=== PATIENT | female | born 1985 | race Caucasian/White ===

== ENCOUNTER 2018-07-22 12:42 | Emergency (ER) | payer MEDICARE, MEDICAID ==
[~2018-07-22] VITALS: Ht 121.9 cm; Wt 25.0 kg
[~2018-07-22 12:42] MED LIST: B-12 DOTS500 MCG SL; BACLOFEN10 MG PO; BACLOFEN20 MG OR; DIAZEPAM2 MG OR; DULCOLAX5 MG PO; HYDROCO/APAP1 TA9 OR; OMEPRAZOLE20 MG OR; PEPCID20 MG PO; PHENOBARB30 MG OR; TAM75CAP PO; TRAMADOL HCL50 MG PO; TRANSDERM-SC1.5 MG TD; TRAZODONE50 MG PO; VITAMIN D31000 UNI1 PO; [UNRECOGNIZED DRUG - OTHER] OR
[2018-07-22 13:51] LABS: INFLUENZA A NONE DETECTED (NONE DETECT); INFLUENZA B NONE DETECTED (NONE DETECT)
[2018-07-22 14:36] LABS: ALBUMIN 3.4 g/dL (3.2-5.0); ALKALINE PHOSPHATASE 112 u/l (38-126); ANION GAP 11 (6-22 (CALC)); BILIRUBIN, TOTAL 0.2 mg/dL (0.0-1.4); BUN 13 mg/dL (7-17); BUN/CREATININE RATIO 34 (12-20 (CALC)); CARBON DIOXIDE 30 mmol/l (22-30); CHLORIDE 105 mmol/l (95-108); CREATININE 0.4 mg/dL (0.5-1.0); GFR > 60 ML/MIN (>=60 (CALC)); GFR FOR AFR.AMER. > 60 ML/MIN (>=60 (CALC)); LIPASE 74 u/l (23-300); SGOT/AST 15 u/l (14-36); SGPT/ALT 28 u/l (9-52); SODIUM 143 mmol/l (137-146); TOTAL PROTEIN 6.4 g/dL (6.3-8.2)
[2018-07-22 14:37] LABS: POTASSIUM 3.2 mmol/l (3.5-5.1)
[2018-07-22 14:45] LABS: HEMATOCRIT 35.4 % (37.0-47.0); HEMOGLOBIN 10.9 g/dl (12.0-16.0); IMMATURE GRANULOCYTES 0.4 % (0.0-5.0); MEAN CORPUSCULAR HGB 25.8 pG CALC (26.0-32.0); MEAN CORPUSCULAR HGB CONC 30.8 g/L CALC (32.0-36.0); NEUT# 4.15 thou/uL (2.00-7.15); RED BLOOD COUNT 4.22 mill/uL (4.20-5.60); RED CELL DISTRI WIDTH 19.4 % (11.5-15.5)
[2018-07-22 14:46] LABS: MEAN CELL VOLUME 83.9 fL CALC (80.0-100.0)
[2018-07-22] MEDS ORDERED: OMEPRAZOLE10 MG PO (15:56)
[2018-07-22] MEDS ORDERED: TRAZODONE50 MG PO (16:02)
[2018-07-22] MEDS ORDERED: MIRALAX3350 NF PO (16:04)
[2018-07-22] MEDS ORDERED: DIAZEPAM2 MG PO (16:07)
[2018-07-22] MEDS ORDERED: DESOWEN EX (16:08)
[2018-07-22 16:41] LABS: URINE BILIRUBIN - DIPSTICK NEGATIVE (NEGATIVE); URINE BLOOD DIPSTICK NEGATIVE (NEGATIVE); URINE COLOR YELLOW; URINE GLUCOSE - DIPSTICK NEGATIVE (NEGATIVE); URINE KETONE NEGATIVE (NEGATIVE); URINE LEUK ESTERASE NEGATIVE (NEGATIVE); URINE NITRITE - DIPSTICK NEGATIVE (Negative); URINE PH 7.5 (4.5-8.0); URINE PROTEIN - DIPSTICK TRACE mg/dL (NEG-TRACE); URINE UROBILINOGEN - DIPSTICK 0.2 E.U./dL (0.2)
[2018-07-22 16:44] LABS: URINE CLARITY CLEAR
[2018-07-22] MEDS ORDERED: ZPAK PO (16:58)
[2018-07-22] MEDS ORDERED: K-TAB20 MEQ PO (16:58)
[2018-07-22 17:30] VITALS: BP 97/78
== END 2018-07-22 17:30 | disposition home or self-care (01) ==
LOC: ED 12:42
PROVIDERS: Family Medicine
DX: R53.1 Weakness (principal); R05 Cough; E87.6 Hypokalemia; G80.9 Cerebral palsy, unspecified; H54.7 Unspecified visual loss

== ENCOUNTER 2018-09-26 10:00 | Emergency (ER) | payer MEDICARE, MEDICAID ==
[~2018-09-26] VITALS: Ht 121.9 cm; Wt 25.0 kg
[~2018-09-26 10:00] MED LIST changes: +DESOWEN EX; +DIAZEPAM2 MG PO; +K-TAB20 MEQ PO; +MIRALAX3350 NF PO; +OMEPRAZOLE10 MG PO; +ZPAK PO
[2018-09-26 11:17] LABS: INFLUENZA A NONE DETECTED (NONE DETECT); INFLUENZA B NONE DETECTED (NONE DETECT)
[2018-09-26] MEDS ORDERED: ZITHROMAX200 MG/5 M PO (11:24)
[2018-09-26] MEDS ORDERED: AMOX/K CLA400 MG/5 M PO (11:24)
[2018-09-26 11:27] VITALS: BP 108/77
== END 2018-09-26 11:45 | disposition home or self-care (01) ==
LOC: ED 10:00
PROVIDERS: Emergency Medicine
DX: J02.0 Streptococcal pharyngitis (principal); H54.7 Unspecified visual loss; G80.9 Cerebral palsy, unspecified; Z98.2 Presence of cerebrospinal fluid drainage device

== ENCOUNTER 2018-09-29 19:53 | Emergency (ER) | payer MEDICARE, MEDICAID ==
[~2018-09-29] VITALS: Ht 121.9 cm; Wt 34.0 kg
[~2018-09-29 19:53] MED LIST changes: +AMOX/K CLA400 MG/5 M PO; +ZITHROMAX200 MG/5 M PO
[2018-09-29 20:46] LABS: HEMATOCRIT 39.9 % (37.0-47.0); HEMOGLOBIN 12.1 g/dl (12.0-16.0); IMMATURE GRANULOCYTES 0.9 % (0.0-5.0); MEAN CELL VOLUME 87.9 fL CALC (80.0-100.0); MEAN CORPUSCULAR HGB 26.7 pG CALC (26.0-32.0); MEAN CORPUSCULAR HGB CONC 30.3 g/L CALC (32.0-36.0); NEUT# 2.31 thou/uL (2.00-7.15); RED BLOOD COUNT 4.54 mill/uL (4.20-5.60); RED CELL DISTRI WIDTH 20.5 % (11.5-15.5)
[2018-09-29 20:58] LABS: ALKALINE PHOSPHATASE 131 u/l (38-126); ANION GAP 13 (6-22 (CALC)); BILIRUBIN, TOTAL 0.4 mg/dL (0.0-1.4); BUN 12 mg/dL (7-17); BUN/CREATININE RATIO 38 (12-20 (CALC)); CARBON DIOXIDE 25 mmol/l (22-30); CHLORIDE 104 mmol/l (95-108); CREATININE 0.3 mg/dL (0.5-1.0); GFR > 60 ML/MIN (>=60 (CALC)); GFR FOR AFR.AMER. > 60 ML/MIN (>=60 (CALC)); SGOT/AST 65 u/l (14-36); SODIUM 137 mmol/l (137-146); TOTAL PROTEIN 6.2 g/dL (6.3-8.2)
--- NOTE | 2018-09-29 21:11 | NUR ---
BREATHING TREATMENT GIVEN BACK TO BACK USING MASK. BREATHING TECH. FOR GOOD DEPOSITION TO THE LUNGS.
[2018-09-29] MEDS ORDERED: DUONEB IN (21:53)
[2018-09-29] MEDS ORDERED: NEBULIZER KIT/TUBING IN (21:53)
== END 2018-09-29 22:15 | disposition home or self-care (01) ==
LOC: ED 19:53
PROVIDERS: Family Medicine
DX: J18.9 Pneumonia, unspecified organism (principal); G80.9 Cerebral palsy, unspecified; H54.7 Unspecified visual loss; Z98.2 Presence of cerebrospinal fluid drainage device

== ENCOUNTER 2018-10-11 10:30 | Emergency (ER) | payer MEDICARE, MEDICAID ==
[~2018-10-11] VITALS: Ht 121.9 cm; Wt 25.0 kg
[~2018-10-11 10:30] MED LIST changes: +DUONEB IN; +NEBULIZER KIT/TUBING IN
[2018-10-11 11:28] LABS: HEMATOCRIT 32.2 % (37.0-47.0); HEMOGLOBIN 9.8 g/dl (12.0-16.0); IMMATURE GRANULOCYTES 1.4 % (0.0-5.0); MEAN CELL VOLUME 87.3 fL CALC (80.0-100.0); MEAN CORPUSCULAR HGB 26.6 pG CALC (26.0-32.0); MEAN CORPUSCULAR HGB CONC 30.4 g/L CALC (32.0-36.0); NEUT# 4.73 thou/uL (2.00-7.15); RED BLOOD COUNT 3.69 mill/uL (4.20-5.60); RED CELL DISTRI WIDTH 21.4 % (11.5-15.5)
[2018-10-11 11:40] LABS: ANION GAP 10 (6-22 (CALC)); BUN 18 mg/dL (7-17); BUN/CREATININE RATIO 61 (12-20 (CALC)); CARBON DIOXIDE 26 mmol/l (22-30); CHLORIDE 105 mmol/l (95-108); CREATININE 0.3 mg/dL (0.5-1.0); GFR > 60 ML/MIN (>=60 (CALC)); GFR FOR AFR.AMER. > 60 ML/MIN (>=60 (CALC)); SODIUM 137 mmol/l (137-146)
[2018-10-11] MEDS ORDERED: RANITIDINE75 MG/5 M1 PO (11:51)
[2018-10-11 12:22] VITALS: BP 93/71
[2018-10-11] MEDS ORDERED: JEVITY 1.5 PO (12:38)
== END 2018-10-11 12:35 | disposition home or self-care (01) ==
LOC: ED 10:30
PROVIDERS: Family Medicine
DX: K92.2 Gastrointestinal hemorrhage, unspecified (principal); G80.9 Cerebral palsy, unspecified; K21.9 Gastro-esophageal reflux disease without esophagitis; H54.7 Unspecified visual loss; Z98.2 Presence of cerebrospinal fluid drainage device; Z93.1 Gastrostomy status

== ENCOUNTER 2019-08-15 16:00 | Emergency (ER) | payer MEDICARE, MEDICAID ==
[~2019-08-15] VITALS: Ht 121.9 cm; Wt 34.9 kg
[~2019-08-15 16:00] MED LIST changes: +JEVITY 1.5 PO; +RANITIDINE75 MG/5 M1 PO
[2019-08-15 17:44] LABS: HEMATOCRIT 36.9 % (37.0-47.0); HEMOGLOBIN 10.6 g/dl (12.0-16.0); IMMATURE GRANULOCYTES 0.4 % (0.0-5.0); MEAN CELL VOLUME 72.6 fL CALC (80.0-100.0); MEAN CORPUSCULAR HGB 20.9 pG CALC (26.0-32.0); MEAN CORPUSCULAR HGB CONC 28.7 g/L CALC (32.0-36.0); NEUT# 6.3 thou/uL (2.00-7.15); RED BLOOD COUNT 5.08 mill/uL (4.20-5.60)
[2019-08-15 17:57] LABS: ALBUMIN 3.4 g/dL (3.2-5.0); ALKALINE PHOSPHATASE 140 u/l (38-126); ANION GAP 14 (6-22 (CALC)); BUN 11 mg/dL (7-17); BUN/CREATININE RATIO 30 (12-20 (CALC)); CARBON DIOXIDE 28 mmol/l (22-30); CHLORIDE 99 mmol/l (95-108); CREATININE 0.4 mg/dL (0.5-1.0); GFR > 60 ML/MIN (>=60 (CALC)); GFR FOR AFR.AMER. > 60 ML/MIN (>=60 (CALC)); LIPASE 36 u/l (23-300); POTASSIUM 4.2 mmol/l (3.5-5.1); SGOT/AST 59 u/l (14-36); SODIUM 136 mmol/l (137-146); TOTAL PROTEIN 6.7 g/dL (6.3-8.2)
[2019-08-15 17:58] LABS: BILIRUBIN, TOTAL 0.2 mg/dL (0.0-1.4)
[2019-08-15 22:11] VITALS: BP 117/72
== END 2019-08-15 23:10 ==
LOC: ED 16:00
DX: J40 Bronchitis, not specified as acute or chronic (principal); R06.03 Acute respiratory distress; R09.02 Hypoxemia; G80.9 Cerebral palsy, unspecified; H54.7 Unspecified visual loss; Z93.1 Gastrostomy status; Z99.3 Dependence on wheelchair